=== PATIENT | female | born 1995 ===

== ENCOUNTER 2017-01-05 15:58 | Observation (INO) | payer OTHER ==
[2017-01-05 16:25] VITALS: BP 127/71; PULSE 71; RESP 18; TEMP 97.7; O2SAT 98
--- NOTE | 2017-01-05 16:28 | ED PDOC ---
HPI: Female Pain Time Seen by Provider: 01/05/17 16:12 Chief Complaint (Nursing): Female Genitourinary Chief Complaint (Provider): Vaginal bleeding History Per: Patient History/Exam Limitations: no limitations Additional Complaint(s): Pt. with pelvic pain since her colpopscopy in Aug 2016. Pt. then developed vaginal bleeding December 15 and has not stopped. Period should have been over, but still bleeding. Pt. with no nausea, vomit, diarrhea, weakness, headaches, dizziness, dyspnea. No chest pain. No fever. Dx with hpv and told to come back in 6 months for repeat test prior to tx. Past Medical History Reviewed: Nursing Documentation, Vital Signs Vital Signs: Last Vital Signs Temp 97.7 F 01/05/17 16:08 Pulse 71 01/05/17 16:08 Resp 18 01/05/17 16:08 BP 127/71 01/05/17 16:08 Pulse Ox 98 01/05/17 16:08 - Medical History Other PMH: hpv - Surgical History Surgical History: No Surg Hx - Family History Family History: States: Unknown Family Hx - Social History Current smoker - smoking cessation education provided: No Alcohol: None Drugs: Denies - Allergies Allergies/Adverse Reactions: Allergies Allergy/AdvReac Type Severity Reaction Status Date / Time No Known Allergies Allergy Verified 01/05/17 16:07 Review of Systems ROS Statement: Except As Marked, All Systems Reviewed And Found Negative Genitourinary Female: Positive for: Vaginal Bleeding, Pelvic Pain Physical Exam - Reviewed Nursing Documentation Reviewed: Yes Vital Signs Reviewed: Yes - Physical Exam Appears: Positive for: Non-toxic, No Acute Distress Head Exam: Positive for: ATRAUMATIC, NORMAL INSPECTION, NORMOCEPHALIC Skin: Positive for: Normal Color, Warm, DRY Eye Exam: Positive for: EOMI, Normal appearance, PERRL ENT: Positive for: Normal ENT Inspection Neck: Positive for: Normal, Painless ROM Cardiovascular/Chest: Positive for: Regular Rate, Rhythm Respiratory: Positive for: CNT, Normal Breath Sounds Gastrointestinal/Abdominal: Positive for: Bowel Sounds, Soft, Tenderness (mild left lower pelvic; no guarding) Back: Positive for: Normal Inspection Extremity: Positive for: Normal ROM Neurologic/Psych: Positive for: Alert, Oriented - Laboratory Results Result Diagrams: 01/05/17 17:00 01/05/17 17:00 Interpretation Of Abn Labs: no acute - ECG O2 Sat by Pulse Oximetry: 98 Pulse Ox Interpretation: Normal - CT Scan/US US Other Rad Studies (CT/US): Read By Radiologist Other Rad Interpretation: no acute - Progress ED Course And Treament: 192: Stable. AAOx3. Pain free. Tolerated PO. Fu with pcp. ED OBSERVATION Discharge: Yes Date of observation admission: 01/05/17 Time of observation admission: 16:51 - Observation admission statement Patient is being placed in observation because:: pelvic pain - Goals of Observation Goals of observation are:: eval with US Disposition - Clinical Impression Clinical Impression: Vaginal bleeding, Pain in pelvis - Patient ED Disposition Is Patient to be Admitted: No Counseled Patient/Family Regarding: Studies Performed, Diagnosis, Need For Followup - Disposition Disposition: Routine/Home Disposition Time: 19:28 Condition: STABLE
[2017-01-05 17:40] LABS: BASO # 0.1 K/uL (0.0-0.2); BASO % 0.8 % (0.0-2.0); EOS # 0.3 K/uL (0.0-0.7); EOS % 4.2 % (0.0-4.0); HEMATOCRIT 40.8 % (34.0-47.0); LYMPH # 3.3 K/uL (1.0-4.3); LYMPH % 49.5 % (20.0-40.0); MEAN CELL VOLUME 90.8 fl (81.0-99.0); MEAN CORPUSCULAR HEMOGLOBIN 30.1 pg (27.0-31.0); MEAN CORPUSCULAR HGB CONC 33.2 g/dL (33.0-37.0); MEAN PLATELET VOLUME 9.6 fl (7.2-11.7); MONO # 0.5 K/uL (0.0-0.8); MONO % 8.1 % (0.0-10.0); NEUT # 2.5 K/uL (1.8-7.0); NEUT % 37.4 % (50.0-75.0); RED CELL DISTRIBUTION WIDTH 13.1 % (11.5-14.5); WHITE BLOOD COUNT 6.6 K/uL (4.8-10.8)
[2017-01-05 17:54] LABS: ALB/GLOB RATIO 1.1 (1.0-2.1); ALKALINE PHOSPHATASE 65 U/L (38-126); ALT/SGPT 36 U/L (9-52); AST/SGOT 31 U/L (14-36); BILIRUBIN,TOTAL 0.4 mg/dl (0.2-1.3); BLOOD UREA NITROGEN 11 mg/dl (7-17); CALCIUM 9.5 mg/dL (8.4-10.2); CARBON DIOXIDE 24 mmol/L (22-30); CHLORIDE 105 mmol/L (98-107); GFR AFRICAN-AMERICAN > 60; GLUCOSE,RANDOM 89 mg/dL (65-105); POTASSIUM 3.9 MMOL/L (3.6-5.0); SODIUM 141 mmol/l (132-148)
--- NOTE | 2017-01-05 19:06 | US ---
Pelvic ultrasound dated 01/05/2017. History: Pelvic pain and vaginal bleeding. Transabdominal sonographic evaluation of the pelvis performed. Note that patient on declined transvaginal cyst study. Findings: The uterus is anteverted measuring approximately 7.5 x 2.9 x 4.3 cm. Endometrial stripe measures 3 mm. No obvious myometrial masses. No gross free fluid seen in the cul de sac. Right ovary measures 1.4 x 1.0 x 1.5 cm and left ovary measures 2.1 x 1.1 x 1.4 cm. Both ovaries exhibit arterial flow Impression: Unremarkable transabdominal sonographic evaluation of the pelvis.
== END 2017-01-05 19:38 | disposition home or self-care (01) ==
LOC: H.ER 15:58 → H.EROBSV 16:22 → UNDOADMOB 16:58 → H.EROBSV 16:58
PROVIDERS: ADMIT Emergency Medicine; ATTEND Emergency Medicine
DX: N93.9 Abnormal uterine and vaginal bleeding, unspecified (principal); R10.2 Pelvic and perineal pain